=== PATIENT | female | born 1980 | race Caucasian/White ===

== ENCOUNTER 2016-11-30 18:21 | Emergency (ER) | payer OTHER, MEDICAID ==
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
[2016-11-30 19:03] LABS: BASOPHIL % 0.4 %; HEMATOCRIT 42.2 % (33.0-46.0); HEMOGLOBIN 14.4 g/dL (11.0-15.0); IMMATURE GRANULOCYTE % 0.3 %; LYMPHOCYTE # 2.5 K/uL (0.8-4.0); LYMPHOCYTE % 22.8 %; MCH 31.9 pg (27.0-34.0); MCHC 34.1 gm/dL (32.0-36.5); MCV 93.6 fl (83.0-98.0); MONOCYTE # 0.7 K/uL (0.0-1.0); MONOCYTE % 5.9 %; MPV 9.5 fl (9.4-12.4); NEUTROPHIL # (ANC) 7.8 K/uL (1.8-7.8); NEUTROPHIL % 70.6 %; NRBC % 0 /100WBC (0-0.00); PLATELET COUNT 315 K/uL (150-450); RBC 4.51 M/uL (3.50-5.50)
[2016-11-30 19:11] LABS: INR - (THERAPEUTIC) 0.95 (0.92-1.07); PTT 28 SECONDS (25-32)
[2016-11-30 19:23] LABS: ALBUMIN 3.3 gm/dL (3.5-5.0); ALK PHOS 124 IU/L (33-138); ALT 17 IU/L (12-78); BLOOD UREA NITROGEN 6 mg/dL (6-24); CALCIUM 8.4 mg/dL (8.5-10.5); CHLORIDE 108 mMol/L (96-110); CO2 25 mMol/L (22-32); CREATININE 0.8 mg/dL (0.5-1.1); SODIUM 140 mMol/L (135-145); TOTAL BILIRUBIN 0.2 mg/dL (0.0-1.5); TOTAL PROTEIN 6.9 g/dL (6.0-8.4)
[2016-11-30 19:24] LABS: ANION GAP 10.8 (10.0-19.0); AST 13 IU/L (10-40); POTASSIUM 3.8 mMol/L (3.7-5.1)
== END 2016-11-30 20:52 | disposition disaster alternative care site (69) ==
LOC: GACC 18:21
PROVIDERS: Emergency Medicine
PROC: 2W3FX1Z Immobilization of Left Hand using Splint (ICD-10-PCS; principal; 2016-11-30)
DX: S22.22XA Fracture of body of sternum, initial encounter for closed fracture (principal); S63.502A Unspecified sprain of left wrist, initial encounter; S53.402A Unspecified sprain of left elbow, initial encounter; S93.401A Sprain of unspecified ligament of right ankle, initial encounter; G40.909 Epilepsy, unspecified, not intractable, without status epilepticus; E66.9 Obesity, unspecified; F17.210 Nicotine dependence, cigarettes, uncomplicated; Z88.1 Allergy status to other antibiotic agents; Z88.8 Allergy status to other drugs, medicaments and biological substances; Z79.899 Other long term (current) drug therapy; V49.9XXA Car occupant (driver) (passenger) injured in unspecified traffic accident, initial encounter
CPT/HCPCS: J7030; Q9967